=== PATIENT | female | born 1985 | race Caucasian/White ===

== ENCOUNTER 2017-09-05 10:06 | Emergency (ER) | payer OTHER, SELFPAY ==
[2017-09-05 10:08] VITALS: BP 136/91; PULSE 107; RESP 16; TEMP 36.9; O2SAT 99; BMI 25.7
--- NOTE | 2017-09-05 10:21 | ED.VISSUMM ---
- ER Visit Summary Date of Service: 09/05/17 Chief Complaint: Unilateral headache, left side History of Present Illness: The patient is a 32 F has history of migraine headaches presents with a unilateral headache on the left side heard onset . She did have one day where she was asymptomatic. She does complain of nausea vomiting photophobia. There is no history of fever or chills. She denies night sweats. She denies double vision, blurred vision or loss of vision. Denies trouble with speech or swallowing. She denies postnasal drainage, congestion or earache. She denies any neck pain or stiffness. She has no cardiac restaurant symptoms. GI is positive for nausea vomiting otherwise negative. There are no neurologic symptoms other than headache. She denies any urologic symptoms. No sign symptoms of . Physical Examination: Vital signs remarkable for a blood pressure 136/91 heart rate 107. She is in a dark room. Head is atraumatic normocephalic. Pupils are equal round reactive. Extraocular muscles are intact. Scopic exam reveals normal cup-to-disc ratio with no papilledema. Venous pulsations were noted bilaterally. TMs are pearly white with landmarks noted. Nares patent with no drainage. Posterior pharynx without erythema or exudate. Uvula is midline. There is no dysphonia or dysphasia. Trachea is midline. There is no stridor with auscultation of the neck. There is no nuchal rigidity or meningeal findings. Heart is regular without murmur, gallop or rub. S1 and S2 are normal. Lungs are clear to auscultation with good movement of air bilaterally. Patient is alert and oriented ?3. Motor is 5 over 5. Sensory is intact. DTRs are symmetric with no clonus or Babinski sign. Cranial 2 through 12 are intact. Cerebellar testing is normal. Test Results: No tests were ordered Emergency Department Course and Treatment: Patient was treated with 30 mg of Toradol IV push and 25 mg of Benadryl IV push. Since there is no Reglan available in the hospital she received 2 mg of Haldol IV push. Treatment Plan: She was reassessed at 1050. She is smiling. Lights are on in the room. She reports a significant reduction. Disposition: Discharge to home in stable and improved condition Impression: Acute migraine headache This note was generated with [employer] software. It may contain incorrect words, spelling, and punctuation that were not noted in review of the chart prior to signing ED Disposition - Plan for ED Patient: Disposition: Home or Assisted Living Chief Complaint: Headache Referrals: Jose Duenas DO [Primary Care Provider] - As Needed Additional Instructions: Recommend speaking with your doctor and trying a different antimigraine medication
[2017-09-05] MEDS: DiphenhydrAMINE 50 MG/ML Syringe 25 MG IV (10:33)
[2017-09-05] MEDS: Ketorolac 30 MG/ML Syringe IV (10:35)
[2017-09-05] MEDS: Haloperidol Lactate 5 MG/ML Vial 2 MG IV (10:36)
[2017-09-05 10:42] VITALS: BP 147/77; PULSE 71; RESP 18; O2SAT 99
--- NOTE | 2017-09-05 10:55 | ED.DCSUM_ITS ---
- ER Visit Summary Date of Service: 09/05/17 Chief Complaint: [] History of Present Illness: The patient is a 32 F [] Physical Examination: [] Test Results: [] Emergency Department Course and Treatment: [] Treatment Plan: [] Disposition: [] Impression: [] This note was generated with [employer] dictation software. It may contain incorrect words, spelling, and punctuation that were not noted in review of the chart prior to signing ED Disposition - Plan for ED Patient: Disposition: Home or Assisted Living Chief Complaint: Headache Instructions: ED Headache Migraine Referrals: Jose Duenas DO [Primary Care Provider] - As Needed Additional Instructions: Recommend speaking with your doctor and trying a different antimigraine medication
[2017-09-05 11:08] VITALS: BP 141/79; PULSE 75; RESP 14; O2SAT 100
--- NOTE | 2017-09-05 11:08 | ED.RN ---
THIS NURSE REVIEWED D/C INSTRUCTIONS WITH PT. PT VERBALIZED UNDERSTANDING OF INSTRUCTIONS. IV D/C. IV CATHETER INTACT. PT TOLERATED WELL. PT DENIES FURTHER NEEDS OR QUESTIONS AT THIS TIME. PT AMBULATES FROM ROOM ON OWN WITHOUT ASSISTANCE FROM STAFF
== END 2017-09-05 11:09 | disposition home or self-care (01) ==
PROVIDERS: Emergency Provider Emergency Medicine; Family Provider Student in an Organized Health Care Education/Training Program; PCP Student in an Organized Health Care Education/Training Program
DX: G43.909 Migraine, unspecified, not intractable, without status migrainosus (principal)
CPT/HCPCS: 96374; 96375; 99283; A4216